=== PATIENT | female | born 1975 | race African-American/Black ===

== ENCOUNTER 2016-12-03 18:57 | Emergency (ER) | payer OTHER ==
[~2016-12-03] VITALS: Ht 167.6 cm; Wt 75.7 kg
[~2016-12-03 18:57] MED LIST: CETI10TA22 PO
[2016-12-03 19:00] VITALS: BP 111/76
[2016-12-03] MEDS ORDERED: FLUORESCEIN 1MG EYE STRIP. ONE (19:16)
[2016-12-03] MEDS ORDERED: TETRACAINE 0.5% OPHTH SOLUTION 4ML BOTTLE. ONE (19:17)
--- NOTE | 2016-12-03 19:54 | PHYS DOC ---
Text Text This patient will be discharged home with topical and right ointment for her eye antihistamines to help with the itching and instructions to use cold compresses on her eyelid. 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 See discharge instructions General Chief Complaint: EYE PROBLEMS Stated Complaint: EYE PROBLEMS Time Seen by MD: 19:41 Source: patient Exam Limitations: no limitations Problems: History of Present Illness Initial Comments Patient is a pleasant 40-year-old otherwise healthy female who woke up from a nap this afternoon noted some itching to her right upper eyelid began to scratch at it. She noted increased swelling localized redness and soft tissue edema. She denies any visual acuity problems or body sensation she does not wear contact lenses she wears glasses she has no sensitivity to light. She denies any direct trauma she does not suffer from seasonal allergies. Symptoms are made worse by scratching at the eyelid itself and may better with cool compresses Timing/Duration: abrupt, this evening Severity: mild Location: eye (R), other (right eyelid) Prearrival Treatment: no prearrival treatment Modifying Factors: improves with other (rubbing eyelid) Associated Symptoms: denies symptoms Allergies: Coded Allergies: hydroxyzine HCl (Verified Allergy, Unknown, Shortness of Air, 03/12/14) Past Medical History Medical History: no pertinent history Surgical History: no surgical history Family History Significant Family History: no pertinent family hx Social History Smoker: non-smoker Alcohol: none Drugs: none Constitutional: no symptoms reported Eyes: denies blindness, denies blurred vision, denies drainage, denies decreased acuity, denies foreign body sensation, denies inflammation, denies pain, denies photophobia, denies previous injury, denies shadows, denies tunnel vision, denies vision change, denies contact lenses, glasses Ears: no symptoms reported Nose: no symptoms reported Mouth: no symptoms reported Throat: no symptoms reported Respiratory: no symptoms reported Cardiovascular: no symptoms reported Skin: change in color other (localized swelling and irritation) All Other Systems: Reviewed and Negative Physical Exam Eyes: right eye EOMI, right eye PERRL, right eye lid inflammation Nose: normal inspection Neck: non-tender, full range of motion Cardiovascular/Respiratory: regular rate, rhythm, no M/R/G Skin: normal color, warm/dry (small area of erythema and soft tissue swelling consistent with localized reactive hyperemia) Orders, Labs, Meds Patient presents with eyelid irritation and localize inflammation consistent with a histamine reaction. Her eye was stained seen using tetracaine eye was examined. There is no evidence of corneal abrasion, there is no chemosis, no ring sign, no Terri's no loss of visual acuity. Her eyelid was also everted there is no foreign body no evidence of hordeola, or stye or chalazoin. Patient 's itching was exacerbated by direct pressure over the eyelid itself. There is no rash no evidence of herpes zoster or vesicles on the nose ear or face. I believe this is local formation from an allergic reaction.. MK LAI MD Dec 03, 2016 19:54
[2016-12-03] MEDS ORDERED: DIPH25CA58 PO (19:59)
[2016-12-03] MEDS ORDERED: OLOP5DRO RIGHTEYE (19:59)
[2016-12-03] MEDS ORDERED: DIPHENHYDRAMINE 50 MG/ML VIAL IM ONE (20:00)
== END 2016-12-03 20:10 | disposition home or self-care (01) ==
LOC: ER 18:57
DX: H01.8 Other specified inflammations of eyelid (principal); H57.8 Other specified disorders of eye and adnexa; Z88.8 Allergy status to other drugs, medicaments and biological substances
CPT/HCPCS: 96372; 99283; J1200